=== PATIENT | male | born 1995 | race Caucasian/White ===

== ENCOUNTER 2022-09-10 09:41 | Inpatient (IN) | payer MEDICAID, OTHER ==
[~2022-09-10] VITALS: Ht 167.6 cm; Wt 61.8 kg
[2022-09-10 10:55] LABS: BASOPHILS % (AUTO) 0.5 % (0.0-2.0); EOSINOPHILS % (AUTO) 0.7 % (1.0-6.0); HEMATOCRIT 42.3 % (41-53); LYMPHOCYTES % (AUTO) 10.7 % (22.0-44.0); MEAN CORPUSCULAR HEMOGLOBIN 29.4 pg (26.0-34.0); MEAN CORPUSCULAR HGB CONC 33.1 G/dL (31.0-37.0); MEAN CORPUSCULAR VOLUME 89 fL (80-100); MONOCYTES # (AUTO) 0.7 K/uL (0.1-1.0); MONOCYTES % (AUTO) 6.9 % (2.0-9.0); NEUTROPHILS # (AUTO) 7.8 K/uL (1.8-7.7); NEUTROPHILS % (AUTO) 81.2 % (40.0-70.0); PLATELET COUNT (AUTO) 357 K/uL (150-450); RED BLOOD CELL COUNT(AUTO) 4.76 MIL/uL (4.50-5.90); RED CELL DISTRIBUTION WIDTH 13.3 % (11.5-14.5)
[2022-09-10 11:02] LABS: ANION GAP 5 mmol/L (8-16); CALCIUM, TOTAL 9.6 mg/dL (8.8-10.5); CARBON DIOXIDE 31 mmol/L (22-29); CHLORIDE 102 mmol/L (98-107); CREATININE 1.02 mg/dL (0.60-1.30); GLUCOSE,RANDOM 120 mg/dL (70-110); POTASSIUM 4.5 mmol/L (3.5-5.1); SODIUM SERUM 138 mmol/L (136-145); UREA NITROGEN, BLOOD 14 mg/dL (7-18)
[2022-09-10 11:04] LABS: AMPHET/METH SCREEN,URINE NEGATIVE (NEGATIVE); BARBITURATE SCREEN, URINE NEGATIVE (NEGATIVE); BENZODIAZEPINES SCREEN,URINE NEGATIVE (NEGATIVE); CANNABINOID SCREEN,URINE POSITIVE (NEGATIVE); COCAINE SCREEN,URINE NEGATIVE (NEGATIVE); METHADONE SCREEN, URINE NEGATIVE (NEGATIVE); OPIATE SCREEN,URINE NEGATIVE (NEGATIVE)
[2022-09-10 11:06] LABS: GLOMERULAR FILTR. RATE CALC > 60 mL/min (>60)
[2022-09-10 11:07] LABS: PHENCYCLIDINE SCREEN,URINE NEGATIVE (NEGATIVE)
[2022-09-10 11:08] LABS: ALANINE AMINOTRANSFERASE 16 U/L (12-78); ALBUMIN 3.8 g/dL (3.4-5.0); ALKALINE PHOSPHATASE 111 U/L (46-116); ASPARTATE AMINOTRANSFERASE 14 U/L (15-37); BILIRUBIN,TOTAL 0.2 mg/dL (0.1-1.0); TOTAL PROTEIN, SERUM 6.9 g/dL (6.4-8.2)
[2022-09-10 11:36] LABS: COVID AG,FIA SOURCE NASAL SWAB
[2022-09-10 14:18] VITALS: BP 117/65
[2022-09-10 16:21] VITALS: BP 101/54
[2022-09-11] MEDS ORDERED: BENZOCAINE/MENTHOL LOZENGE PO PRN (08:00)
[2022-09-11] MEDS ORDERED: OMEPRAZOLE 20 MG CAPSULE PO PRN (08:00)
[2022-09-11] MEDS ORDERED: MAGNESIUM HYDROXIDE SUSPENSION 30 ML UDCUP PO PRN (08:00)
[2022-09-11] MEDS ORDERED: IBUPROFEN 600 MG TABLET PO PRN (08:00)
[2022-09-11] MEDS ORDERED: ALBUTEROL SULFATE HFA 90 MCG/PUFF 8 GM INHALER IH PRN (08:00)
[2022-09-11] MEDS ORDERED: BACITRACIN 28 GM OINTMENT TP PRN (08:00)
[2022-09-11] MEDS ORDERED: PETROLATUM,WHITE 28 GM JELLY TP PRN (08:00)
[2022-09-11] MEDS ORDERED: ACETAMINOPHEN 325 MG TABLET PO PRN (08:00)
[2022-09-11] MEDS ORDERED: CloNIDine HCL 0.1 MG TABLET PO PRN (08:00)
[2022-09-11] MEDS ORDERED: LOPERAMIDE HCL 2 MG CAPSULE PO PRN (08:00)
[2022-09-11] MEDS ORDERED: ONDANSETRON HCL 4 MG TABLET PO PRN (08:00)
[2022-09-11] MEDS ORDERED: DOCUSATE SODIUM 100 MG CAPSULE PO PRN (08:00)
[2022-09-11] MEDS ORDERED: MAG HYDROX/AL HYDROX/SIMETH ES 30 ML SUSPENSION UDCUP PO PRN (08:00)
[2022-09-11] MEDS: NICOTINE 21 MG/24 HOUR PATCH TD SCH (09:18)
[2022-09-11 09:25] VITALS: BP 123/96
[2022-09-11] MEDS: RisperiDONE 1 MG TABLET PO SCH ×2 (12:44→20:36)
[2022-09-11 16:17] VITALS: BP 105/63
[2022-09-12] MEDS: RisperiDONE 1 MG TABLET PO SCH ×2 (08:17→09:00)
[2022-09-12] MEDS: NICOTINE 21 MG/24 HOUR PATCH TD SCH (08:17)
[2022-09-12 08:50] VITALS: BP 106/58
[2022-09-12] MEDS: ARIPiprazole 10 MG TABLET PO SCH (12:14)
[2022-09-12 16:06] VITALS: BP 115/73
[2022-09-13] MEDS: HALOPERIDOL 5 MG TABLET PO PRN (01:44)
[2022-09-13] MEDS: LORazepam 2 MG TABLET PO PRN (01:44)
[2022-09-13] MEDS: ARIPiprazole 10 MG TABLET PO SCH (10:22)
[2022-09-13] MEDS: NICOTINE 21 MG/24 HOUR PATCH TD SCH (10:30)
[2022-09-13 16:00] VITALS: BP 107/74
[2022-09-14] MEDS: NICOTINE 21 MG/24 HOUR PATCH TD SCH (09:54)
[2022-09-14] MEDS: ARIPiprazole 10 MG TABLET PO SCH (09:54)
[2022-09-14] MEDS ORDERED: ARIP10TA38 PO (13:33)
[2022-09-14 16:21] VITALS: BP 97/60
[2022-09-15 08:00] VITALS: BP 106/52
[2022-09-15] MEDS: ARIPiprazole 15 MG TABLET PO SCH (08:24)
[2022-09-15] MEDS: NICOTINE 21 MG/24 HOUR PATCH TD SCH (08:24)
[2022-09-15 16:00] VITALS: BP 92/58
[2022-09-15 21:18] VITALS: BP 104/65
[2022-09-16] MEDS: NICOTINE 21 MG/24 HOUR PATCH TD SCH (08:06)
[2022-09-16] MEDS: ARIPiprazole 15 MG TABLET PO SCH (08:06)
[2022-09-16 08:46] VITALS: BP 107/50
[2022-09-16 10:43] LABS: COVID AG,FIA SOURCE NASAL SWAB
[2022-09-16 16:30] VITALS: BP 104/47
[2022-09-16] MEDS: LORazepam 2 MG TABLET PO PRN (20:48)
[2022-09-16] MEDS: HALOPERIDOL 5 MG TABLET PO PRN (20:49)
[2022-09-17 08:00] VITALS: BP 126/55
[2022-09-17] MEDS: ARIPiprazole 15 MG TABLET PO SCH (08:08)
[2022-09-17] MEDS: NICOTINE 21 MG/24 HOUR PATCH TD SCH ×2 (08:09→09:00)
[2022-09-17 16:00] VITALS: BP 105/57
[2022-09-17 16:14] VITALS: BP 105/57
[2022-09-18] MEDS: ARIPiprazole 15 MG TABLET PO SCH (09:52)
[2022-09-18] MEDS: NICOTINE 21 MG/24 HOUR PATCH TD SCH (09:52)
[2022-09-18 10:26] VITALS: BP 101/57
[2022-09-18 16:08] VITALS: BP 106/68
[2022-09-19] MEDS: ZOLPIDEM TARTRATE 10 MG TABLET PO PRN ×2 (01:05→21:00)
[2022-09-19] MEDS: HALOPERIDOL 5 MG TABLET PO PRN (01:05)
[2022-09-19 08:05] VITALS: BP 128/86
[2022-09-19] MEDS: NICOTINE 21 MG/24 HOUR PATCH TD SCH (08:27)
[2022-09-19] MEDS: ARIPiprazole 15 MG TABLET PO SCH (08:27)
[2022-09-19 16:41] VITALS: BP 93/36
[2022-09-20] MEDS: HALOPERIDOL 5 MG TABLET PO PRN (02:37)
[2022-09-20] MEDS: NICOTINE 21 MG/24 HOUR PATCH TD SCH ×2 (08:32→09:00)
[2022-09-20] MEDS: ARIPiprazole 15 MG TABLET PO SCH (08:32)
[2022-09-20 10:15] VITALS: BP 101/67
[2022-09-20 16:15] VITALS: BP 99/65
[2022-09-21] MEDS: NICOTINE 21 MG/24 HOUR PATCH TD SCH ×2 (08:04→08:53)
[2022-09-21] MEDS: ARIPiprazole 15 MG TABLET PO SCH (08:04)
[2022-09-21] MEDS: HALOPERIDOL 5 MG TABLET PO PRN (09:52)
[2022-09-21 17:00] VITALS: BP 132/62
[2022-09-22] MEDS: ARIPiprazole 15 MG TABLET PO SCH (08:29)
[2022-09-22] MEDS: NICOTINE 21 MG/24 HOUR PATCH TD SCH (08:36)
[2022-09-22 08:45] VITALS: BP 97/51
[2022-09-23 06:41] LABS: COVID AG,FIA SOURCE NASAL SWAB
[2022-09-23] MEDS ORDERED: ARIP15TA27 PO (08:34)
[2022-09-23] MEDS: ARIPiprazole 15 MG TABLET PO SCH (08:48)
[2022-09-23] MEDS: NICOTINE 21 MG/24 HOUR PATCH TD SCH (09:00)
[2022-09-23 09:13] VITALS: BP 120/75
[2022-09-23 16:42] VITALS: BP 106/68
== END 2022-09-23 17:50 | disposition home or self-care (01) | DRG 750 ==
LOC: EMS 09:44 → 3EI 12:11
PROVIDERS: ADMIT Psychiatry & Neurology Psychiatry; ATTEND Psychiatry & Neurology Psychiatry
DX: F20.0 Paranoid schizophrenia (principal); F12.10 Cannabis abuse, uncomplicated; G47.00 Insomnia, unspecified; K59.00 Constipation, unspecified; Z20.822 Contact with and (suspected) exposure to COVID-19; F15.10 Other stimulant abuse, uncomplicated; F41.9 Anxiety disorder, unspecified; Z59.02 Unsheltered homelessness; Z87.891 Personal history of nicotine dependence; Z79.899 Other long term (current) drug therapy
CPT/HCPCS: 80053; 85025; G0480